=== PATIENT | female | born 1995 | race Two or more races ===

== ENCOUNTER 2019-03-01 07:45 | Inpatient (IN) | payer OTHER ==
[2019-03-01] MEDS ORDERED: LACTATED RINGERS SOLUTION 500 ML IV SCH ×2 (08:45→09:45)
[2019-03-01 10:34] VITALS: BMI 35.4
[2019-03-01] MEDS ORDERED: PROMETHAZINE HCL 25 MG/1 ML VIAL IVPB ONE (10:50)
[2019-03-01] MEDS ORDERED: BUTORPHANOL TARTRATE 1 MG/ML VIAL IVPUSH ONE (10:50)
--- NOTE | 2019-03-01 10:56 | HP ---
Past Medical History - Primary Care Physician PCP:: Roland Bender - Admission Chief Complaint: 39 weeks, previous c/s unknown type History of Present Illness: 23 yo ,with one previous c/s, of unknown type in [place], c/o of contraction since this am.. no rom. no bleeding , no fever. History Source: Patient Limitations to Obtaining History: Language Barrier - Past Medical History ...: 2 ...Para: 1 ...Term: 1 ...: 0 ...Spon : 0 ...Induced : 0 ...Multiple Gestation: 0 ...LMP: 05/31/18 ... Weeks Gestation by Dates: 39.1 ...EDC by Dates: 03/07/19 ...EDC by Sono: 03/07/19 - Past Surgical History Past Surgical History: Yes: Hx Myomectomy: No - Smoking History Smoking history: Never smoked Have you smoked in the past 12 months: No - Alcohol/Substance Use Hx Alcohol Use: No - Social History Usual Living Arrangement: Yes: With Spouse History of Recent Travel: No Home Medications - Allergies Allergies/Adverse Reactions: Allergies Allergy/AdvReac Type Severity Reaction Status Date / Time No Known Allergies Allergy Verified 03/01/19 08:31 - Home Medications Home Medications: Ambulatory Orders Vitamins (Sjr) - 1 tab PO DAILY 03/01/19 Review of Systems - Review of Systems Constitutional: reports: No Symptoms Eyes: reports: No Symptoms HENT: reports: No Symptoms Neck: reports: No Symptoms Cardiovascular: reports: No Symptoms Respiratory: reports: No Symptoms Gastrointestinal: reports: No Symptoms Genitourinary: reports: No Symptoms Breasts: reports: No Symptoms Reported Musculoskeletal: reports: No Symptoms Integumentary: reports: No Symptoms Neurological: reports: No Symptoms Hematology/Lymphatic: reports: No Symptoms Psychiatric: reports: No Symptoms Physical Exam - Maternity Vital Signs: Vital Signs Temperature 98.3 F 03/01/19 10:27 Pulse Rate 75 03/01/19 10:27 Respiratory Rate 20 03/01/19 10:27 Blood Pressure 122/71 03/01/19 10:27 O2 Sat by Pulse Oximetry (%) Constitutional: Yes: Well Nourished, No Distress, Calm, Obese Eyes: Yes: WNL, Conjunctiva Clear, EOM Intact HENT: Yes: WNL, Atraumatic, Normocephalic Neck: Yes: WNL, Supple, Trachea Midline Cardiovascular: Yes: WNL, Regular Rate and Rhythm Breast(s): Yes: WNL - Abdominal Exam/OB Fundal Height: 40 Number of Fetuses: Single Presentation: Vertex Contractions: Yes Regularity: Irregular Intensity: Moderate Monitor Mode: External Heart Rate Location: [facility] Category: I Accelerations: Uniform Decelerations: None - Vaginal Exam/OB Vaginal Bleediing: No Speculum Exam: No Dilatation (cm): 1 cm Effacement (%): 50 Amniotic Membrane Status: Intact Station: -3 - Physical Exam Musculoskeletal: Yes: WNL Extremities: Yes: WNL Edema: Yes Edema: LLE: Trace, RLE: Trace Deep Tendon Reflex Grade: Normal +2 Psychiatric: Yes: Alert Hemorrhage Risk Assessment - Risk Factors Medium Risk Factors: Yes: Prior , uterine surgery,or multiple laparotomies Risk Score: 1 Risk Level: Medium Risk Problem List - Problems (1) with 39 completed weeks gestation Code(s): Z3A.39 - 39 WEEKS GESTATION OF (2) Previous section complicating Code(s): O34.219 - MATERNAL CARE FOR UNSP TYPE SCAR FROM PREVIOUS DEL (3) Labor established Code(s): CQH2289 - Assessment/Plan admit FHM repeat c/s advised in view of no previous c/s OR report not available from [place] , wants to try , risks associated with discussed , risks of uterine rupture , IUFD, hemorrhage , maternal , massive transfusion , and other complication discussed with patient and her , declined repeat c/s , wants to try knowing all risks.
[2019-03-01 11:10] LABS: BASO % 0.3 % (0-2.0); EOS % 1.4 % (0-4.5); HEMATOCRIT 35.6 % (32.4-45.2); HEMOGLOBIN 11.9 GM/dL (10.7-15.3); LYMPH % 24.1 % (8-40); MCHC 33.3 g/dl (32.0-36.0); MEAN CELL VOLUME 83.9 fl (80-96); MEAN PLT VOLUME 9.4 fl (7.5-11.1); MONO % 6.6 % (3.8-10.2); NEUT % 67.6 % (42.8-82.8); PLATELET COUNT 214 K/MM3 (134-434); RBC 4.25 M/mm3 (3.60-5.2); RDW 14.6 % (11.6-15.6); WHITE BLOOD COUNT 9.7 K/mm3 (4.0-10.0)
[2019-03-01 11:24] LABS: INR 0.91 (0.83-1.09); PROTHROMBIN TIME (PATIENT) 10.7 SEC (9.7-13.0)
[2019-03-01 11:27] LABS: ACTIVATED PTT 26.9 SECONDS (25.2-36.5)
[2019-03-01] MEDS: LACTATED RINGERS SOLUTION 1,000 ML IV SCH (11:30)
[2019-03-01 11:31] LABS: BLOOD UREA NITROGEN 6.6 mg/dL (7-18); CREATININE 0.4 mg/dL (0.55-1.3); POTASSIUM 3.8 mmol/L (3.5-5.1)
[2019-03-01] MEDS ORDERED: BUTORPHANOL TARTRATE 1 MG/ML VIAL ONE ×2 (14:45)
[2019-03-01] MEDS ORDERED: PROMETHAZINE HCL 25 MG/1 ML VIAL ONE (14:45)
[2019-03-01] MEDS ORDERED: LIDOCAINE HCL 1% PRESERVATIVE FREE - 30ML VIAL ONE (16:04)
[2019-03-01] MEDS ORDERED: OXYTOCIN 20 UNITS in 0.9% NS 20 UNIT/1,000 ML INFUS.BAG IV ONE ×2 (16:04→20:46)
--- NOTE | 2019-03-01 19:03 | PN ---
Progress Note (short form) - Note Progress Note: cx full 100 vx 0 , fhr cat 1, pushing Problem List - Problems (1) with 39 completed weeks gestation Code(s): Z3A.39 - 39 WEEKS GESTATION OF (2) Previous section complicating Code(s): O34.219 - MATERNAL CARE FOR UNSP TYPE SCAR FROM PREVIOUS DEL (3) Labor established Code(s): OEQ9554 -
[2019-03-01] MEDS ORDERED: BENZOCAINE 20% 57 GM BOTTLE TP PRN (19:23)
[2019-03-01] MEDS ORDERED: BENZOCAINE 28 GM HEMORRHOIDAL OINTMENT TP PRN (19:23)
[2019-03-01] MEDS ORDERED: WITCH HAZEL 50% (TUCKS) 40 PAD/JAR PAD TP PRN (19:23)
[2019-03-01] MEDS ORDERED: METHYLERGONOVINE MALEATE 0.2 MG/1 ML AMP IM PRN (19:23)
[2019-03-01] MEDS ORDERED: BISACODYL 10 MG SUPP.RECT RC PRN (19:23)
--- NOTE | 2019-03-01 19:29 | PN ---
Delivery - Delivery Vaginal Delivery: V-Anjel Type of Anesthesia: Local Episiotomy/Laceration: 1st degree (cx full, head on pernium, head delivered , no cord, ant,post shoulder with no difficulty , live baby girl 9/9. first deegree laceration with 20 chromic interupted , 2 sutures , no complication) Delivery, Single - Feeding Plan Initial Plan: Exclusive throughout hospitalization
[2019-03-01] MEDS: IBUPROFEN 600 MG TABLET (FP) PO PRN (21:11)
[2019-03-01] MEDS: ACETAMINOPHEN 325 MG TABLET (FP) PO PRN (21:11)
[2019-03-01] MEDS: OXYTOCIN 20 UNITS in 0.9% NS 20 UNIT/1,000 ML INFUS.BAG IV SCH (21:14)
--- NOTE | 2019-03-02 06:20 | PN ---
Post Progress Note - Subjective Subjective: doing well, sitting up in bed, minimal bleeding Post Day: 1 Type of Delivery: Vital Signs: Vital Signs Temperature 98.7 F 03/02/19 02:00 Pulse Rate 109 H 03/02/19 02:00 Respiratory Rate 18 03/02/19 02:00 Blood Pressure 121/64 03/02/19 02:00 O2 Sat by Pulse Oximetry (%) 100 03/01/19 20:15 Breast Exam: Yes: Soft Uterus: Yes: Fundus Firm Abdomen/GI: Yes: Abdomen soft Lochia: Yes: Rubra Lochia, amount: Small Extremities: Yes: Calves non-tender Perineum: Yes: Intact Activity: Ambulating - Labs Labs: CBC WBC 9.7 K/mm3 (4.0-10.0) 03/01/19 10:30 RBC 4.25 M/mm3 (3.60-5.2) 03/01/19 10:30 Hgb 11.9 GM/dL (10.7-15.3) 03/01/19 10:30 Hct 35.6 % (32.4-45.2) 03/01/19 10:30 MCV 83.9 fl (80-96) 03/01/19 10:30 MCH 28.0 pg (25.7-33.7) 03/01/19 10:30 MCHC 33.3 g/dl (32.0-36.0) 03/01/19 10:30 RDW 14.6 % (11.6-15.6) 03/01/19 10:30 Plt Count 214 K/MM3 (134-434) 03/01/19 10:30 MPV 9.4 fl (7.5-11.1) 03/01/19 10:30 Absolute Neuts (auto) 6.5 K/mm3 (1.5-8.0) 03/01/19 10:30 Neutrophils % 67.6 % (42.8-82.8) 03/01/19 10:30 Lymphocytes % 24.1 % (8-40) 03/01/19 10:30 Monocytes % 6.6 % (3.8-10.2) 03/01/19 10:30 Eosinophils % 1.4 % (0-4.5) 03/01/19 10:30 Basophils % 0.3 % (0-2.0) 03/01/19 10:30 Nucleated RBC % 0 % (0-0) 03/01/19 10:30 Assessment/Plan as above oob reg diet cont pp care
[2019-03-02 08:23] LABS: BASO % 0.9 % (0-2.0); EOS % 0.2 % (0-4.5); HEMATOCRIT 33.6 % (32.4-45.2); LYMPH % 18.4 % (8-40); MCH 27.8 pg (25.7-33.7); MCHC 32.8 g/dl (32.0-36.0); MEAN CELL VOLUME 84.6 fl (80-96); MEAN PLT VOLUME 9.8 fl (7.5-11.1); MONO % 6.7 % (3.8-10.2); NEUT % 73.8 % (42.8-82.8); PLATELET COUNT 215 K/MM3 (134-434); RBC 3.98 M/mm3 (3.60-5.2); RDW 15.2 % (11.6-15.6); WHITE BLOOD COUNT 14.5 K/mm3 (4.0-10.0)
[2019-03-02] MEDS: FERROUS SO4 325 MG TABLET (FP) PO SCH ×2 (08:57→18:49)
[2019-03-02] MEDS: PRENATAL VITAMINS W/ FOLIC ACID TABLET (FP) PO SCH (10:36)
[2019-03-02] MEDS: ACETAMINOPHEN 325 MG TABLET (FP) PO PRN ×2 (14:48→23:10)
[2019-03-02] MEDS: IBUPROFEN 600 MG TABLET (FP) PO PRN ×2 (14:49→23:10)
[2019-03-02] MEDS: OXYTOCIN 20 UNITS in 0.9% NS 20 UNIT/1,000 ML INFUS.BAG IV SCH (20:25)
[2019-03-02] MEDS: LACTATED RINGERS SOLUTION 1,000 ML IV SCH (20:25)
[2019-03-02] MEDS ORDERED: SENNOSIDES/DOCUSATE COMBO (SENNA PLUS) TABLET (UD) PO PRN (22:00)
[2019-03-03 00:17] VITALS: BP 109/70
[2019-03-03] MEDS: FERROUS SO4 325 MG TABLET (FP) PO SCH (08:22)
[2019-03-03] MEDS: PRENATAL VITAMINS W/ FOLIC ACID TABLET (FP) PO SCH (09:16)
--- NOTE | 2019-03-03 10:20 | PN ---
Post Progress Note - Subjective Subjective: no complains Post Day: 2 Type of Delivery: Vital Signs: Vital Signs Temperature 98.6 F 03/02/19 22:00 Pulse Rate 80 03/02/19 22:00 Respiratory Rate 18 03/02/19 22:00 Blood Pressure 109/70 03/02/19 22:00 O2 Sat by Pulse Oximetry (%) 100 03/01/19 20:15 Breast Exam: Yes: Soft, Other (BF). No: Engorged, Cracked Nipples Uterus: Yes: Fundus Firm, Fundus below umbilicus, Non-tender Lochia: Yes: Rubra Lochia, amount: Small Extremities: Yes: Calves non-tender Perineum: Yes: Laceration (healing ) Activity: Ambulating - Labs Labs: CBC WBC 14.5 K/mm3 (4.0-10.0) H 03/02/19 07:31 RBC 3.98 M/mm3 (3.60-5.2) 03/02/19 07:31 Hgb 11.0 GM/dL (10.7-15.3) 03/02/19 07:31 Hct 33.6 % (32.4-45.2) 03/02/19 07:31 MCV 84.6 fl (80-96) 03/02/19 07:31 MCH 27.8 pg (25.7-33.7) 03/02/19 07:31 MCHC 32.8 g/dl (32.0-36.0) 03/02/19 07:31 RDW 15.2 % (11.6-15.6) 03/02/19 07:31 Plt Count 215 K/MM3 (134-434) 03/02/19 07:31 MPV 9.8 fl (7.5-11.1) 03/02/19 07:31 Absolute Neuts (auto) 10.7 K/mm3 (1.5-8.0) H 03/02/19 07:31 Neutrophils % 73.8 % (42.8-82.8) 03/02/19 07:31 Lymphocytes % 18.4 % (8-40) D 03/02/19 07:31 Monocytes % 6.7 % (3.8-10.2) 03/02/19 07:31 Eosinophils % 0.2 % (0-4.5) D 03/02/19 07:31 Basophils % 0.9 % (0-2.0) 03/02/19 07:31 Nucleated RBC % 0 % (0-0) 03/02/19 07:31 Problem List - Problems (1) Encounter for care of lactating mother Code(s): Z39.1 - ENCOUNTER FOR CARE AND EXAMINATION OF LACTATING MOTHER Assessment/Plan stable discharge today
[2019-03-03 10:25] VITALS: PULSE 71; TEMP 98.1
== END 2019-03-03 13:00 | disposition home or self-care (01) | DRG 560 ==
LOC: JDEL 07:45 → JLDR 09:45 → J3W 20:50
PROVIDERS: ADMIT Obstetrics & Gynecology; ATTEND Obstetrics & Gynecology
PROC: 10E0XZZ Delivery of Products of Conception, External Approach (ICD-10-PCS; principal; 2019-03-01)
PROC: 0HQ9XZZ Repair Perineum Skin, External Approach (ICD-10-PCS; 2019-03-01)
DX: O34.211 Maternal care for low transverse scar from previous cesarean delivery (principal); E66.9 Obesity, unspecified; O99.213 Obesity complicating pregnancy, third trimester; O70.0 First degree perineal laceration during delivery; Z3A.39 39 weeks gestation of pregnancy; Z37.0 Single live birth
CPT/HCPCS: 36415; 59025; 59409; 80048; 85025; 85610; 85730; 86593; 86850; 86900; 86901

== ENCOUNTER 2019-03-18 12:21 | Emergency (ER) | payer OTHER ==
[2019-03-18 12:39] VITALS: BMI 28.9
--- NOTE | 2019-03-18 13:02 | PDOC ---
History of Present Illness - General Chief Complaint: Cold Symptoms Stated Complaint: sent by PCP Time Seen by Provider: 03/18/19 12:42 History Source: Patient - History of Present Illness Timing/Duration: reports: other Associated Symptoms: reports: dizziness, fever/chills, headache, muscle aches. denies: cough, shortness of breath, sore throat Past History - Past Medical History Allergies/Adverse Reactions: Allergies Allergy/AdvReac Type Severity Reaction Status Date / Time No Known Allergies Allergy Verified 03/01/19 08:31 Home Medications: Ambulatory Orders Vitamins (Sjr) - 1 tab PO DAILY 03/01/19 Acetaminophen [Tylenol .Regular Strength -] 650 mg PO Q3H PRN tablet 03/03/19 Benzocaine [Americaine 20% [place] -] 1 spray TP PRN PRN bottle 03/03/19 Ibuprofen [Motrin -] 200 mg PO Q4H PRN tablet 03/03/19 Vitamins (Sjr) - 1 tab PO DAILY tablet 03/03/19 Witch Magalys 50% (Tucks) [Tucks Pads -] 1 pad TP PRN PRN pad 03/03/19 Asthma: No Cancer: No Cardiac Disorders: No COPD: No Diabetes: No HTN: No Seizures: No Thyroid Disease: No - Suicide/Smoking/Psychosocial Hx Smoking History: Never smoked Have you smoked in the past 12 months: No Hx Alcohol Use: No Drug/Substance Use Hx: No Hx Substance Use Treatment: No Review of Systems - Review of Systems Constitutional: Yes: Chills, Fever, Malaise Respiratory: No: Cough, Shortness of Breath Cardiac (ROS): No: Chest Pain ABD/GI: No: Diarrhea, Nausea, Vomiting, Abdominal cramping : No: Dysuria, Flank Pain, Hematuria Neurological: Yes: Headache *Physical Exam - Vital Signs Last Vital Signs Temp Pulse Resp BP Pulse Ox 103 F H 114 H 19 104/65 97 03/18/19 12:34 03/18/19 12:34 03/18/19 12:34 03/18/19 12:34 03/18/19 12:34 - Physical Exam General Appearance: Yes: Appropriately Dressed. No: Apparent Distress HEENT: positive: Normal Voice Neck: positive: Supple Respiratory/Chest: positive: Lungs Clear, Normal Breath Sounds. negative: Respiratory Distress Cardiovascular: positive: S1, S2, Tachycardia Gastrointestinal/Abdominal: positive: Soft. negative: Tender Musculoskeletal: negative: CVA Tenderness Integumentary: positive: Dry, Warm Neurologic: positive: Fully Oriented, Alert, Normal Mood/Affect ED Treatment Course - LABORATORY CBC & Chemistry Diagram: 03/18/19 13:40 03/18/19 13:40 Medical Decision Making - Medical Decision Making 03/18/19 13:02 23 yo F, s/p vaginal delivery at [facility] ~ 2 weeks ago, here w/ CLAIRE, body aches, dizziness, f/c since last night. Denies abd pain, change in BM, vag bleeding, dysuria, n/v, cough, SOB, or CP See exam Viral syndrome s/p 2 weeks and no abd pain/bleed/discharge to suspect endometritis at this time, no cough/sob to suspect PNA, unlikely pre-eclampsia Febrile to 103 w/ HR 114 but non-toxic nicola, currently breast feeding in ED -tylenol -IVF -labs -reassess 03/18/19 15:17 Labs unremarkable, ua pending. IVF in progress, will reassess. Page sent out to Dr Bender, pt's OB. Pt signed out to UYEN Kellogg *DC/Admit/Observation/Transfer Diagnosis at time of Disposition: Viral illness - Referrals - Patient Instructions - Post Discharge Activity
[2019-03-18] MEDS ORDERED: ACETAMINOPHEN 325 MG TABLET (FP) PO ONE (13:07)
[2019-03-18] MEDS ORDERED: SODIUM CHLORIDE 1,000 ML IV STA ×2 (13:07→15:19)
[2019-03-18] MEDS ORDERED: ACETAMINOPHEN 325 MG TABLET (FP) ONE (13:27)
[2019-03-18 14:03] LABS: BASO % 0.7 % (0-2.0); HEMATOCRIT 42.5 % (32.4-45.2); HEMOGLOBIN 14.3 GM/dL (10.7-15.3); LYMPH % 10.4 % (8-40); MCH 28.2 pg (25.7-33.7); MCHC 33.6 g/dl (32.0-36.0); MEAN PLT VOLUME 8.7 fl (7.5-11.1); MONO % 2.9 % (3.8-10.2); PLATELET COUNT 318 K/MM3 (134-434); RBC 5.06 M/mm3 (3.60-5.2); RDW 14.7 % (11.6-15.6); WHITE BLOOD COUNT 10.3 K/mm3 (4.0-10.0)
[2019-03-18 14:28] LABS: ALBUMIN 3.7 g/dl (3.4-5.0); BILIRUBIN,TOTAL 0.4 mg/dL (0.2-1); BLOOD UREA NITROGEN 11.6 mg/dL (7-18); CALCIUM 9.2 mg/dL (8.5-10.1); CREATININE 0.8 mg/dL (0.55-1.3); POTASSIUM 3.9 mmol/L (3.5-5.1); TOT PROT 8.1 g/dl (6.4-8.2)
--- NOTE | 2019-03-18 14:34 | PDOC ---
*Physical Exam - Vital Signs Last Vital Signs Temp Pulse Resp BP Pulse Ox 103 F H 114 H 19 104/65 97 03/18/19 12:34 03/18/19 12:34 03/18/19 12:34 03/18/19 12:34 03/18/19 12:34 ED Treatment Course - LABORATORY CBC & Chemistry Diagram: 03/18/19 13:40 03/18/19 13:40 - ADDITIONAL ORDERS Additional order review: Laboratory Results 03/18/19 03/18/19 03/18/19 13:40 13:40 13:40 Sodium 136 Potassium 3.9 Chloride 103 Carbon Dioxide 25 Anion Gap 8 BUN 11.6 Creatinine 0.8 Est GFR (CKD-EPI)AfAm 118.76 Est GFR (CKD-EPI)NonAf 102.47 Random Glucose 87 Lactic Acid 1.1 Calcium 9.2 Total Bilirubin 0.4 AST 18 ALT 25 Alkaline Phosphatase 134 H Total Protein 8.1 Albumin 3.7 Lipase 154 03/18/19 13:40 RBC 5.06 MCV 84.0 MCHC 33.6 RDW 14.7 MPV 8.7 D Neutrophils % 85.0 H Lymphocytes % 10.4 D Monocytes % 2.9 L Eosinophils % 1.0 D Basophils % 0.7 - Medications Given in the ED: ED Medications Discontinued Medications Generic Name Dose Route Start Last Admin Trade Name Grace PRN Reason Stop Dose Admin Acetaminophen 650 mg 03/18/19 13:07 03/18/19 13:48 Tylenol - PO 03/18/19 13:08 650 mg ONCE ONE Administration Sodium Chloride 1,000 mls @ 1,000 mls/hr 03/18/19 13:07 03/18/19 13:49 Normal Saline - IV 03/18/19 14:06 1,000 mls/hr ASDIR STA Administration Medical Decision Making - Medical Decision Making 03/18/19 14:34 Pt seen by Midlevel Provider under my direct supervision 03/18/19 18:45 23 yo F 2 weeks s/p vaginal delivery with fever Examination consistent with mastitis Laboratory Tests 03/18/19 03/18/19 13:40 15:42 WBC 10.3 H Hgb 14.3 Hct 42.5 D Plt Count 318 D Neutrophils % 85.0 H Urine WBC (Auto) 23 Urine RBC (Auto) 1 US with no retained products Pt also demonstrates UTI Is breast feeding Will give Keflex Pt interviewed and examined Ancillary studies reviewed I agree with plan as outlined by Midlevel Provider 03/18/19 18:46 *DC/Admit/Observation/Transfer Diagnosis at time of Disposition: Mastitis in obstetric context, antepartum, fever - Discharge Dispostion Disposition: HOME - Prescriptions Prescriptions: Cephalexin Monohydrate [Keflex -] 500 mg PO Q6H #40 capsule - Referrals - Patient Instructions Printed Discharge Instructions: DI for Mastitis Additional Instructions: apply warm compress to the left breast, continue breast feeding. do light massage to left breast drink plenty of fluids follow up with your broiler manager as soon as possible. - Post Discharge Activity
[2019-03-18 16:34] LABS: HYALINE CASTS 0 /lpf (0-8); URINE APPEARANCE CLEAR; URINE BACTERIA 71.6 /hpf (NEGATIVE); URINE BILIRUBIN NEGATIVE (NEGATIVE); URINE COLOR YELLOW; URINE GLUCOSE (UA) NEGATIVE (NEGATIVE); URINE KETONE NEGATIVE (NEGATIVE); URINE LEUK ESTERASE 2+ (NEGATIVE); URINE NITRITE NEGATIVE (NEGATIVE); URINE PROTEIN NEGATIVE (NEGATIVE); URINE RBC 1 /hpf (0-4); URINE UROBILINOGEN 0.2 mg/dL (0.2-1.0); URINE WBC 23 /hpf (0-5)
--- NOTE | 2019-03-18 16:41 | PDOC ---
*Physical Exam - Vital Signs Last Vital Signs Temp Pulse Resp BP Pulse Ox 100.0 F H 80 19 101/50 L 96 03/18/19 15:37 03/18/19 15:37 03/18/19 15:37 03/18/19 15:37 03/18/19 15:37 - Physical Exam General Appearance: Yes: Appropriately Dressed Respiratory/Chest: positive: Other (left nipple tender + tender nodule at 12 o' clock position. left nipple and breast pain and tenderness on palpation) Cardiovascular: positive: Regular Rhythm, Tachycardia Female Pelvic Exam: positive: normal external exam, other (no swelling erythema noted at episiotomy site) Gastrointestinal/Abdominal: positive: Normal Bowel Sounds, Soft. negative: Tender Extremity: positive: Normal Capillary Refill, Normal Inspection, Normal Range of Motion Integumentary: positive: Normal Color, Dry, Warm Neurologic: positive: Fully Oriented, Alert, Normal Mood/Affect ED Treatment Course - LABORATORY CBC & Chemistry Diagram: 03/18/19 13:40 03/18/19 13:40 - ADDITIONAL ORDERS Additional order review: Laboratory Results 03/18/19 03/18/19 03/18/19 15:42 13:40 13:40 Sodium 136 Potassium 3.9 Chloride 103 Carbon Dioxide 25 Anion Gap 8 BUN 11.6 Creatinine 0.8 Est GFR (CKD-EPI)AfAm 118.76 Est GFR (CKD-EPI)NonAf 102.47 Random Glucose 87 Lactic Acid Calcium 9.2 Total Bilirubin 0.4 AST 18 ALT 25 Alkaline Phosphatase 134 H Total Protein 8.1 Albumin 3.7 Lipase 154 Urine Color Yellow Urine Appearance Clear Urine pH 7.0 Ur Specific [place] 1.009 L Urine Protein Negative Urine Glucose (UA) Negative Urine Ketones Negative Urine Blood Negative Urine Nitrite Negative Urine Bilirubin Negative Urine Urobilinogen 0.2 Ur Leukocyte Esterase 2+ H Urine WBC (Auto) 23 Urine RBC (Auto) 1 Urine Casts (Auto) 0 U Epithel Cells (Auto) 1.0 Urine Bacteria (Auto) 71.6 03/18/19 13:40 Sodium Potassium Chloride Carbon Dioxide Anion Gap BUN Creatinine Est GFR (CKD-EPI)AfAm Est GFR (CKD-EPI)NonAf Random Glucose Lactic Acid 1.1 Calcium Total Bilirubin AST ALT Alkaline Phosphatase Total Protein Albumin Lipase Urine Color Urine Appearance Urine pH Ur Specific [place] Urine Protein Urine Glucose (UA) Urine Ketones Urine Blood Urine Nitrite Urine Bilirubin Urine Urobilinogen Ur Leukocyte Esterase Urine WBC (Auto) Urine RBC (Auto) Urine Casts (Auto) U Epithel Cells (Auto) Urine Bacteria (Auto) 03/18/19 13:40 RBC 5.06 MCV 84.0 MCHC 33.6 RDW 14.7 MPV 8.7 D Neutrophils % 85.0 H Lymphocytes % 10.4 D Monocytes % 2.9 L Eosinophils % 1.0 D Basophils % 0.7 - RADIOLOGY Radiology Studies Ordered: Category Date Time Status PELVIS(OTHER) US [US] Stat Ultrasound 03/18/19 16:39 Ordered - Medications Given in the ED: ED Medications Discontinued Medications Generic Name Dose Route Start Last Admin Trade Name Freq PRN Reason Stop Dose Admin Acetaminophen 650 mg 03/18/19 13:07 03/18/19 13:48 Tylenol - PO 03/18/19 13:08 650 mg ONCE ONE Administration Sodium Chloride 1,000 mls @ 1,000 mls/hr 03/18/19 13:07 03/18/19 13:49 Normal Saline - IV 03/18/19 14:06 1,000 mls/hr ASDIR STA Administration Sodium Chloride 1,000 mls @ 1,000 mls/hr 03/18/19 15:19 03/18/19 15:36 Normal Saline - IV 03/18/19 16:18 1,000 mls/hr ASDIR STA Administration Medical Decision Making - Medical Decision Making 03/18/19 17:38 A: mastitis; fever post r/o endometritis P: cbc cmp blood culture ua UCX 03/18/19 18:05 pelvic US: wnl. *DC/Admit/Observation/Transfer Diagnosis at time of Disposition: Mastitis in obstetric context, antepartum, fever - Discharge Dispostion Disposition: HOME - Prescriptions Prescriptions: Cephalexin Monohydrate [Keflex -] 500 mg PO Q6H #40 capsule - Referrals - Patient Instructions Printed Discharge Instructions: DI for Mastitis Additional Instructions: apply warm compress to the left breast, continue breast feeding. do light massage to left breast drink plenty of fluids follow up with your checker as soon as possible. - Post Discharge Activity
[2019-03-18] MEDS ORDERED: CEPHALEXIN MONOHYDRATE 500 MG CAPSULE (UD) PO ONE (18:11)
[2019-03-18] MEDS ORDERED: CEPHALEXIN MONOHYDRATE 500 MG CAPSULE (UD) ONE (18:14)
[2019-03-18 18:23] VITALS: BP 101/72; PULSE 88; TEMP 99.3
== END 2019-03-18 18:20 | disposition home or self-care (01) ==
LOC: JER 12:21
PROC: 3E0337Z Introduction of Electrolytic and Water Balance Substance into Peripheral Vein, Percutaneous Approach (ICD-10-PCS; principal; 2019-03-18)
DX: O91.22 Nonpurulent mastitis associated with the puerperium (principal); R50.9 Fever, unspecified
CPT/HCPCS: 36415; 76856-TC; 80053; 81003; 83605; 83690; 85025; 87040; 87086; 96360; 96361; 99283-25; J7030